=== PATIENT | male | born 2000 | race Caucasian/White ===

== ENCOUNTER 2021-08-03 14:22 | Emergency (ER) | payer OTHER ==
[~2021-08-03] VITALS: Ht 180.3 cm; Wt 113.4 kg
[2021-08-03] MEDS ORDERED: KETOROLAC TROMETHAMINE 60 MG/2 ML VIAL IM ONE (15:30)
== END 2021-08-03 16:44 | disposition home or self-care (01) ==
LOC: ER 14:38
DX: S20.229A Contusion of unspecified back wall of thorax, initial encounter (principal); S30.0XXA Contusion of lower back and pelvis, initial encounter; W01.198A Fall on same level from slipping, tripping and stumbling with subsequent striking against other object, initial encounter; Y93.89 Activity, other specified
CPT/HCPCS: 72072; 72110; 99283; J1885